=== PATIENT | male | born 1980 | race Hispanic/Latino ===

== ENCOUNTER 2024-08-16 21:27 | Emergency (ER) | payer SELFPAY, OTHER ==
--- OUTSIDE RECORDS SUMMARY | 2024-08-16 21:30 | XMS REPORT | Continuity of Care Document ---
Author Name Unknown Address [address] [facility] [address] [place] [address] [facility] thconnect Address [address] [facility] [address] [place] [address] Care Team Providers Care Store Leader Name Role Phone PCP, PATIENT DOES NOT HAVE A Primary Care Physic mara Unavailable ROBBIE BERGERON Attending Clinician Unavailable Rowan Mendoza Attending Clinician [phone] Unknown, Attending Attending Clinician Unavailab Ellen Donis Attending Clinician [phone] ELLEN CHAUDHARY Attending Clinician Unavailable Jose Meza MD Attending Clinician [phone] JOSE MEZA Attending Clinician Unavailable ROBBIE BERGERON Admitting Clinician Unavailable JOSE MEZA Admitting Clinician Unavailable Problems Condition Name Condition Details Condition Category Status Onset Date Resolution Date Last Treatment Date Treating Clinician Comments Source Cholecysti tis Cholecysti tis Disease Active 2-05 00:00: 00 [facility] Acute cholecysti tis Acute cholecysti tis Disease Active 2-03 00:00: 00 [facility] Choledocho lithiasis Choledocho lithiasis Disease Active 2- 00:00: 00 Overview: Formattin g of this note might be different from the original. Added automatic ally from request for surgery [id number] [facility] Biliary colic Biliary colic Disease Active 10-14 00:00: 00 Overview: Formattin g of this note might be different from the original. Added automatic ally from request for surgery [id number] [facility] Allergies, Adverse Reactions, Alerts Allergy Name Allergy Type Status Severity Reaction(s) Onset Date Inactive Date Treating Clinician Comments Source Mushroom Drug Allergy Active Hives 10-02 00:00: 00 [facility] [place] Extract Drug Allergy Active Hives 10-02 00:00: 00 "black olives" [facility] MUSHROOM DRUG INGREDI Active High Hives 10-02 00:00: 00 [facility] OLIVE EXTRACT DRUG INGREDI Active High Hives 10-02 00:00: 00 [facility] Social History Social Habit Start Date Stop Date Quantity Comments Source [facility] Alcoholic beverage intake 2024-02-14 00:00:00 2024-02-14 00:00:00 Ex-drinker (finding) [facility] Alcohol intake 2021-01-05 00:00:00 2021-01-05 00:00:00 Ex-drinker (finding) [facility] History of Social function 2021-01-04 00:00:00 2021-01-04 00:00:00 [facility] Tobacco use and exposure 2020-10-13 00:00:00 2020-10-13 00:00:00 Smokeless tobacco non-user [facility] Sex assigned at 1980 00:00:00 1980 00:00:00 [facility] Smoking Status Start Date Stop Date Source Never smoked tobacco [facility] Medications Ordered Medication Name Filled Medication Name Start Date Stop Date Current Medication? Ordering Clinician Indication Dosage Frequency Signature (SIG) Comments Components Source ibuprofen (IBU) tablet 800 mg 02-13 21:00: 00 02-13 20:15 :00 No [id number] 800mg 800 mg, Oral, ONCE, 1 dose, On Mon02/14/24 at 1600, Routine [facility] promethazin e-dextromet horphan 6.25-15 mg/5 mL syrup 02-13 00:00: 00 02-24 04:59 :00 No [id number] 10mL Take 10 mL by mouth 4 (four) times daily for 10 days. [facility] predniSONE 20 mg tablet 5-29 00:00: 00 02-19 04:59 :00 No [id number] 40mg Take 2 tablets by mouth in the morning for 5 days. [facility] lisinopriL 10 mg tablet 3-15 00:00: 00 Yes 10mg Take 1 tablet by mouth every morning. [facility] NaCl 0.9% (NS) bolus infusion 1,000 mL 09-28 10:00: 00 09-28 09:54 :00 No 1000mL at 999 mL/hr, 1,000 mL, IV Infusion, ONCE, 1 dose, On Susie 09/28/23 at 0400, STAT [facility] NaCl 0.9% (NS) bolus infusion 1,000 mL 09-28 09:45: 00 09-28 11:00 :00 No 1000mL at 999 mL/hr, 1,000 mL, IV Infusion, ONCE, 1 dose, On Susie 09/28/23 at 0345, SAQIB [facility] meclizine (TRAVEL-EAS E (MECLIZINE) ) tablet 25 mg 09-28 09:00: 00 09-28 09:01 :00 No 25mg 25 mg, Oral, ONCE, 1 dose, On Susie 09/28/23 at 0300, SAQIB [facility] metoclopram yogesh HCl (REGLAN) injection 10 mg 09-28 09:00: 00 09-28 09:01 :00 No 10mg 10 mg, Slow IV Push, ONCE, 1 dose, On Susie 09/28/23 at 0300, [facility] meclizine 25 mg tablet 09-28 00:00: 00 Yes [id number] 25mg Take 1 tablet by mouth every 6 (six) hours. [facility] ondansetron 4 mg disintegrat ing tablet 09-28 00:00: 00 Yes [id number] 4mg Take 1 tablet by mouth every 4 (four) hours as needed for Nausea and Vomiting (N/V). [facility] alum-mag hydroxide-s imeth 200-200-20 mg/5 mL suspension 06 00:00: 00 Yes [id number] 30mL Take 30 mL by mouth 3 (three) times daily. [facility] Vital Signs Vital Name Observation Time Observation Value Comments S ource Systolic blood pressure 2024-02-14 19:46:00 121 mm[Hg] [facility] Diastolic blood pressure 2024-02-14 19:46:00 82 mm[Hg] [facility] Heart rate 2024-02-14 19:46:00 77 /min [facility] Body temperature 2024-02-14 19:46:00 36.83 Kimberly [facility] Respiratory rate 2024-02-14 19:46:00 13 /min [facility] Body height 2024-02-14 19:46:00 165.1 cm [facility] Body weight 2024-02-14 19:46:00 68.13 kg [facility] BMI 2024-02-14 19:46:00 24.99 kg/m2 [facility] Oxygen saturation in Arterial blood by Pulse oximetry 2024-02-14 19:46:00 100 /min [facility] Systolic blood pressure 2023-09-28 11:00:00 133 mm[Hg] [facility] Diastolic blood pressure 2023-09-28 11:00:00 95 mm[Hg] [facility] Heart rate 2023-09-28 11:00:00 82 /min [facility] Respiratory rate 2023-09-28 11:00:00 13 /min [facility] Oxygen saturation in Arterial blood by Pulse oximetry 2023-09-28 11:00:00 99 /min [facility] Body temperature 2023-09-28 08:39:00 36.72 Kimberly [facility] Body height 2023-09-28 08:39:00 165.1 cm [facility] Body weight 2023-09-28 08:39:00 68.04 kg [facility] BMI 2023-09-28 08:39:00 24.96 kg/m2 [facility] Procedures Procedure Date / Time Performed Performing Clinician Source URINALYSIS 2023-09-28 10:01:00 Jose Meza [facility] URINE DRUG (IMMUNOASSAY) - COMPREHENSIVE DRUG SCREEN W/O REFLEX 2023-09-28 10:01:00 Jose Meza [facility] COMP. METABOLIC PANEL ([id number]) 2023-09-28 08:57:00 Jose Meza [facility] CBC WITH DIFF 2023-09-28 08:57:00 Jose Meza [facility] NOTICE OF PRIVACY PRACTICES 2023-09-28 08:30:28 Doctor Unassigned, [place] [facility] CONSENT/REFUSAL FOR DIAGNOSIS AND TREATMENT 2023-09-28 08:29:59 Doctor Unassigned, [place] [facility] Encounters Start Date/Time End Date/Time Encounter Type Admission Type Attending [facility] Care Facility Care Department Encounter ID Source 2021-07-18 11:02:27 Outpatient ROBBIE NAVARRO [facility] [id number] [facility] 2021-07-17 21:27:17 Emergency [facility] [id number] [facility] 2021-07-17 20:06:05 Outpatient ROBBIE NAVARRO [facility] [id number] [facility] 2024-02-14 14:40:00 2024-02-14 15:00:00 Urgent Care Rowan Rivera Unknown, Attending Ellen Chaudhary [facility] [id number] [facility] 2024-02-14 14:40:00 2024-02-14 14:40:00 Outpatient ELLEN MALLOY [facility] [id number] [facility] 2023-10-27 17:18:44 2023-10-27 17:18:44 Outpatient [facility]A [id number] Patricio Roy 2023-09-29 08:26:10 2023-09-29 08:26:10 Outpatient [facility] [id number] Patricio Roy 2023-09-28 02:43:00 2023-09-28 05:17:00 Emergency Jose Meza [facility] [id number] [facility] 2023-09-28 02:43:00 2023-09-28 05:17:00 Emergency X JOSE MEZA [facility] [id number] [facility] 2022-07-16 09:44:56 2022-07-16 09:44:56 Outpatient [facility] [id number] Patricio Roy 2021-01-01 10:45:00 2021-01-01 10:45:00 Outpatient ROBBIE NAVARRO [facility] [id number] [facility] 2020-12-16 00:00:00 2020-12-16 00:00:00 Outpatient ROBBIE NAVARRO [facility] [id number] [facility] 2020-12-01 16:15:00 2020-12-01 16:15:00 Outpatient ROBBIE NAVARRO [facility] [id number] [facility] 2020-11-23 10:15:00 2020-11-23 10:15:00 Outpatient ROBBIE NAVARRO [facility] [id number] [facility] 2020-11-09 10:45:00 2020-11-09 10:45:00 Outpatient ROBBIE NAVARRO [facility] [id number] [facility] 2020-10-29 13:30:00 2020-10-29 13:30:00 Outpatient ROBBIE NAVARRO [facility] [id number] [facility] 2020-10-15 10:30:00 2020-10-15 10:30:00 Outpatient ROBBIE NAVARRO [facility] [id number] [facility] 2020-10-13 14:00:00 2020-10-13 14:00:00 Outpatient ROBBIE NAVARRO [facility] [id number] [facility] 2020-10-06 14:15:00 2020-10-06 14:15:00 Outpatient ROBBIE NAVARRO [facility] [id number] [facility] 2020-10-02 02:18:00 2020-10-02 07:00:00 Emergency X JOSE MEZA [facility] ERT [id number] [facility] Notes Date/Time Note Provider Source 2023-09-28 05:16:23 Pt given printed and verbal discharge instructions regarding dizziness and vertigo, encouraged hydration, Prescriptions provided to preferred pharmacy Discussed ibuprofen and to take with food to avoid GI distress. Pt verbalized understanding of instructions, pt awake alert oriented, resp reg unlabored, skin w/d, color appropriate for race, moves all ext well,pt encouraged to follow up with pcp Advised to seek medical attention for new/prolonged/worsening of symptoms No adverse reaction to meds given in ER noted upon discharge PIV d'cd, dressing to site, catheter in tact. Awake, alert oriented, resp reg unlabored, skin w/d, pt leaving amb with steady gait, in no apparent distress [facility] 2023-09-28 03:00:00 Patient aware of urine sample needed. Unable to provide sample at this time. Urinal at bedside. [facility] 2023-09-28 02:37:03 Patient ambulatory to ED c/o nausea, vomiting, and vertigo starting around 0130. BP at home was 158/109. 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 Patient nauseated during triage. Patient states no pain at this moment, just dizzy. Hx: high triglycerides URE CAPITAL ANALYST Andrea Tyson RN [facility]
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
[2024-08-16] MEDS ORDERED: CYCLOBENZAPRINE 10 MG TAB ONE (22:03)
[2024-08-16] MEDS ORDERED: KETOROLAC 30 MG/ML INJ ONE (22:03)
[2024-08-17 02:11] VITALS: BP 150/98; TEMP 98.5; O2SAT 100
== END 2024-08-16 22:14 | disposition home or self-care (01) ==
LOC: ER 21:27
DX: M54.2 Cervicalgia (principal); V59.40XA Driver of pick-up truck or van injured in collision with unspecified motor vehicles in traffic accident, initial encounter; I10 Essential (primary) hypertension
CPT/HCPCS: 96372; 99284